=== PATIENT | male | born 1980 | race Two or more races ===

== ENCOUNTER 2019-05-25 10:32 | Day surgery (SDC) | payer OTHER ==
[2019-05-25] VITALS (10 sets, daily range): BP systolic 108–145; BP diastolic 56–86
[~2019-05-25] VITALS: Ht 193 cm; Wt 176.9 kg
--- NOTE | 2019-05-25 10:39 | Anethesia Preoperative Eval ---
Anesthesia Pre-op PMH/ROS General Date of Evaluation: May 25, 2019 Anesthesiologist: Vinay ASA Score: ASA 2 Mallampati Score Class I : Soft palate, uvula, fauces, pillars visible Class II: Soft palate, uvula, fauces visible Class III: Soft palate, base of uvula visible Class IV: Only hard plate visible Mallampati Classification: Class III Surgeon: Rufino Diagnosis: Right knee acl tear Surgical Procedure: Right knee arthroscopy with acl repair Anesthesia History: none Family History: no anesthesia problems Allergies: Coded Allergies: No Known Allergies (Unverified , 05/23/19) Medications: see eMAR Patient NPO?: Yes NPO Date: May 25, 2019 NPO Time: 00:00 Past Medical History Cardiovascular: Denies: HTN, CAD, [place], valve dz, arrhythmia, other Pulmonary: Denies: asthma, COPD, JOAN, other Gastrointestinal/Genitourinary: Reports: GERD; Denies: CRI, ESRD, other Neurologic/Psychiatric: Denies: dementia, CVA, depression/anxiety, TIA, other Endocrine: Denies: DM, hypothyroidism, steroids, other HEENT: Denies: cataract (L), cataract (R), glaucoma, VENETIE (L), VENETIE (R), other Hematology/Immune: Denies: anemia, DVT, bleeding disorder, other Musculoskeletal/Integumentary: Denies: OA, RA, DJD, DDD, edema, other Other: obesity - morbid PSxH Narrative: UHR Anesthesia Pre-op Phys. Exam Physician Exam see chart Constitutional: NAD Cardiovascular: RRR Respiratory: CTA Airway Exam Mallampati Score: Class III MO: limited Neck: short, obese ROM: limited Anesthesia Pre-op A/P Labs see chart Studies Pre-op Studies: EKG - sr Risk Assessment & Plan Assessment: ASA II Plan: GA Status Change Before Surgery: No Pre-Antibiotics Drug: Ancef Given Within 1 Hr of Incision: Yes Brandy Akins MD May 25, 2019 10:39
[2019-05-25] MEDS ORDERED: EPINEPHrine 1mg/1ml Amp ONE ×3 (11:32→13:35)
[2019-05-25] MEDS ORDERED: Bacitracin 50000 Units Vial ONE (11:33)
[2019-05-25] MEDS ORDERED: Ropivacaine 5mg/ml Vial 20ml INJ ONE ×2 (11:33→12:08)
[2019-05-25] MEDS ORDERED: Bupivacaine w/Epi 0.5% 30ml Vial INJ ONE (11:33)
[2019-05-25] MEDS ORDERED: NS Irrig 1000ml IRRIG ONE ×3 (11:36→13:11)
[2019-05-25] MEDS ORDERED: NS Irrig 4000ml IRRIG ONE ×3 (11:37→13:11)
[2019-05-25] MEDS ORDERED: Propofol 200mg/20ml IV ONE (12:00)
[2019-05-25] MEDS ORDERED: LR 1000ml ONE (12:00)
[2019-05-25] MEDS ORDERED: Sterile Water Irrig 1000ml IRRIG ONE (12:00)
[2019-05-25] MEDS ORDERED: Rocuronium Bromide 50mg/5ml Inj IV ONE (12:00)
[2019-05-25] MEDS ORDERED: LR 1000ml 1,000 ML IVLG SCH (12:04)
[2019-05-25] MEDS ORDERED: Lidocaine 1% MPF 10mg/ml 5ml ONE ×2 (12:06→12:29)
[2019-05-25] MEDS ORDERED: Dexamethasone 4mg/ml vial ONE ×2 (12:06→12:08)
[2019-05-25] MEDS ORDERED: fentaNYL 100 mcg/2 mL IV PRN (12:15)
[2019-05-25] MEDS ORDERED: Meperidine 25mg/0.5ml Inj (FOR RIGORS ONLY) IV PRN (12:15)
[2019-05-25] MEDS ORDERED: DiphenhydrAMINE 50mg/ml Inj IVP PRN (12:15)
[2019-05-25] MEDS ORDERED: Acetaminophen (Non formulary) 100 ML IV ONE (12:15)
[2019-05-25] MEDS ORDERED: Metoclopramide 10mg/2ml Inj IVP PRN (12:15)
[2019-05-25] MEDS ORDERED: Atropine Sulfate 0.4mg/ml inj IVP PRN (12:15)
[2019-05-25] MEDS ORDERED: Ketorolac 30mg Inj IV PRN ×2 (12:15)
[2019-05-25] MEDS ORDERED: Labetalol 5mg/ml 20ml vial IV PRN (12:15)
[2019-05-25] MEDS ORDERED: HYDROcodone/Acetamin 5/325 tab ORAL PRN ×2 (12:15→12:45)
[2019-05-25] MEDS ORDERED: HYDROcodone/Acetamin 7.5/325 tab ORAL PRN (12:15)
[2019-05-25] MEDS ORDERED: LORazepam Inj 2mg/ml 1ml IV PRN (12:15)
[2019-05-25] MEDS ORDERED: Midazolam 2mg/2ml Inj IVP PRN (12:15)
[2019-05-25] MEDS ORDERED: Hydromorphone 0.5mg/0.5ml inj IVP PRN (12:15)
[2019-05-25] MEDS ORDERED: oxyCODONE HCL/Acetaminophen 5/325mg ORAL PRN (12:15)
--- NOTE | 2019-05-25 12:21 | Anethesia Preoperative Eval ---
Anesthesia Pre-op PMH/ROS General Date of Evaluation: May 25, 2019 Time of Evaluation: 12:19 Anesthesiologist: Russell ASA Score: ASA 3 Mallampati Score Class I : Soft palate, uvula, fauces, pillars visible Class II: Soft palate, uvula, fauces visible Class III: Soft palate, base of uvula visible Class IV: Only hard plate visible Mallampati Classification: Class III Surgeon: Elie Diagnosis: R Knee Pain Surgical Procedure: R Knee ACL Repair Family History: no anesthesia problems Allergies: Coded Allergies: No Known Allergies (Unverified , 05/25/19) Medications: see eMAR Patient NPO?: Yes NPO Date: May 25, 2019 NPO Time: 00:00 Past Medical History Cardiovascular: Reports: HTN Other: obesity - BMI 49 Anesthesia Pre-op Phys. Exam Physician Exam Last Vital Signs Date Time Temp Pulse Resp B/P (MAP) Pulse Ox O2 Delivery O2 Flow Rate FiO2 05/25/19 11:13 Room Air 05/25/19 11:10 97.8 76 20 145/86 97 Constitutional: NAD Neurologic: CN 2-12 intact Cardiovascular: RRR Respiratory: CTA Gastrointestinal: S/NT/ND Airway Exam Mallampati Score: Class III MO: limited ROM: limited Teeth: missing, intact Anesthesia Pre-op A/P Risk Assessment & Plan Assessment: ASA 3 Plan: GA, SED Status Change Before Surgery: No Pre-Antibiotics Dru Grams Ancef IV Given Within 1 Hr of Incision: Yes Time Given: 12:41 Ravin Wells MD May 25, 2019 12:21
--- NOTE | 2019-05-25 12:41 | Pre-Procedure Note/Attestation ---
Pre-Procedure Note/Attestation Complete Prior to Procedure Planned Procedure: right Procedure Narrative: right kne acl reconstruction Indications for Procedure Pre-Operative Diagnosis: right knee acl tear Attestation I attest that I discussed the nature of the procedure; its benefits; risks and complications; and alternatives (and the risks and benefits of such alternatives ), prior to the procedure, with the patient (or the patient's legal nutrition representative). I attest that, if there was a reasonable possibility of needing a blood transfusion, the patient (or the patient's legal nutrition representative) was given the [facility] standardized written summary, pursuant to the [place] Blood Safety Act ([place] Health and Safety Code # 1645, as amended). I attest that I re-evaluated the patient just prior to the surgery and that there has been no change in the patient's H&P, except as documented below: Navid Joy MD May 25, 2019 12:41
--- NOTE | 2019-05-25 12:42 | Brief Operative Note ---
Immediate Post Operative Note Operative Note Pre-op Diagnosis: right knee acl tear Procedure: right knee acl Post-op Diagnosis: righ tknee acl tear ,, tear oa Post-op Diagnosis: same as pre-op Findings: consistent w/pre-op dx studies Surgeon: donell Anesthesia: general Specimen: none Complications: none Condition: stable Fluids: y Estimated Blood Loss: minimal Implant(s) used?: Yes Navid Joy MD May 25, 2019 12:42
[2019-05-25] MEDS ORDERED: Tylenol #3 tab (300mg/30mg) ORAL PRN (12:45)
[2019-05-25] MEDS ORDERED: D5 1/2NS 1,000 ML IV SCH (12:45)
[2019-05-25] MEDS ORDERED: HYDROmorphone 1mg/ml Carpuject SUBQ PRN (12:45)
--- NOTE | 2019-05-25 13:21 | Immediate Post-Op Evaluation ---
Immediate Post-Op Evalulation Immediate Post-Op Evalulation Procedure: R Knee ACL Repair Date of Evaluation: May 25, 2019 Blood Products: 0 Pain Score (1-10): 2 Nausea: No Vomiting: No Complications 0 Patient Status: awake, reacts, patent, extubated, none Hydration Status: adequate Dru Grams Ancef IV Given Within 1 Hr of Incision: Yes Time Given: 12:41 Ravin Wells MD May 25, 2019 13:21
--- NOTE | 2019-05-25 13:22 | 48 Hour Post Anesthesia Eval ---
Post Anesthesia Evaluation Procedure: R Knee ACL Repair Date of Evaluation: May 25, 2019 Time of Evaluation: 17:12 Blood Pressure Systolic: 121 0: 62 Pulse Rate: 71 Respiratory Rate: 18 Temperature (Fahrenheit): 98 O2 Sat by Pulse Oximetry: 99 Airway: patent Nausea: No Vomiting: No Pain Intensity: 2 Hydration Status: adequate Cardiopulmonary Status: Stable Mental Status/LOC: patient returned to baseline Follow-up Care/Observations: 0 Post-Anesthesia Complications: 0 Follow-up care needed: ready to discharge Ravin Wells MD May 25, 2019 13:22
[2019-05-25] MEDS ORDERED: Neostigmine 1mg/ml 10ml Inj ONE (14:26)
[2019-05-25] MEDS ORDERED: Glycopyrrolate 0.2mg/ml 1ml Vial ONE (14:26)
--- NOTE | 2019-05-25 14:46 | Immediate Post-Op Evaluation ---
Immediate Post-Op Evalulation Immediate Post-Op Evalulation Procedure: R Knee ACL Repair Date of Evaluation: May 25, 2019 Time of Evaluation: 15:00 IV Fluids: 900 LR Blood Products: 0 Estimated Blood Loss: 50 Urinary Output: 0 Blood Pressure Systolic: 118 Blood Pressure Diastolic: 57 Pulse Rate: 73 Respiratory Rate: 16 O2 Sat by Pulse Oximetry: 100 Temperature (Fahrenheit): 97.5 Pain Score (1-10): 2 Nausea: No Vomiting: No Complications 0 Patient Status: awake, reacts, patent, extubated, none Hydration Status: adequate Dru Grams Ancef IV Given Within 1 Hr of Incision: Yes Time Given: 12:41 Ravin Wells MD May 25, 2019 14:46
--- NOTE | 2019-06-07 10:30 | Operative Note - Dictated ---
DATE OF OPERATION: 05/25/2019 FACILITY: [facility]. PREOPERATIVE DIAGNOSES: 1. Right knee large medial meniscus tear. 2. Right knee full ACL tear. 3. Right knee grade 2 and 3 changes medial femoral condyle, medial tibial plateau secondary to accident. 4. Right knee tricompartmental synovitis. 5. Right knee posterior horn and lateral meniscus tear. POSTOPERATIVE DIAGNOSES: 1. Right knee large medial meniscus tear. 2. Right knee full ACL tear. 3. Right knee grade 2 and 3 changes medial femoral condyle, medial tibial plateau secondary to accident. 4. Right knee tricompartmental synovitis. 5. Right knee posterior horn and lateral meniscus tear. PROCEDURES: 1. Right knee arthroscopic ACL reconstruction with Achilles tendon autograft. 2. Modifier 22 secondary to difficulty due to weight. 3. Right knee medial and lateral meniscectomy. 4. Right knee injection of amniotic derived regenerative cells with PRP. SURGEON: Navid Joy M.D. ANESTHESIOLOGIST: Dr. Wells. PREOP NOTE: This is a pleasant gentleman who is 390 pounds taken to the hospital who has unstable knee post accident. I explained to him the surgery and risks being infection, bleeding, anesthetic risks, neurovascular damage, DVT, PE, failure of the operation. The patient agreed. Consents were obtained. OR NOTE: Under the benefit of endotracheal intubation general anesthetic, the patient's right knee was prepped and draped in appropriate manner. Preoperative exam showed instability of the knee. I then proceeded to give a gram of Ancef. Inferolateral and inferomedial incision was made after insufflating the knee with normal saline. Onto the medial side, there was a large medial meniscus tear, bucket-handle in nature with a 01:39 tear which I did a meniscectomy on using ArthroCare wand take 01:44. Chondroplasty was done for cartilage damage in the medial femoral condyle, medial tibial plateau, which was grade II or III in nature for which a chondroplasty was done. I then proceeded to approach the ACL. ACL was completely torn. I used the shaver 02:00 during notchplasty. After doing such, I went to the lateral joint line. There was a posterior horn lateral meniscus tear. The lateral meniscectomy was done with the ArthroCare wand. I then made an incision proximally on the medial side on the tibial crest and then drilled my ACL in with a 10 mm and used the AML guide for the femur, protecting the back wall and placed within perfectly. I then overdrilled this with a 10 mm 02:47 ACL, Achilles tendon graft, into the bone graft, secured it with an 8 mm bioabsorbable screw. I used the screw in full extension with a posterior drawer of the tibia. We had a nice press fit. I examined the knee as well. It was soft throughout all ranges of motion with no instability. I was very pleased. I irrigated the wound copiously. I injected the knee with amniotic regenerative cells and PRP to expedite healing. The patient did well with no complications. Modifier 22 secondary to size. Bal All Joy DR: TATIANA JOB#: [id number] CC:
== END 2019-05-25 16:25 | disposition home or self-care (01) ==
LOC: SUR 10:32
DX: S83.241A Other tear of medial meniscus, current injury, right knee, initial encounter (principal); S83.511A Sprain of anterior cruciate ligament of right knee, initial encounter; M65.861 Other synovitis and tenosynovitis, right lower leg; S83.281A Other tear of lateral meniscus, current injury, right knee, initial encounter; X58.XXXA Exposure to other specified factors, initial encounter; Y92.9 Unspecified place or not applicable; I10 Essential (primary) hypertension; E66.9 Obesity, unspecified; Z68.42 Body mass index [BMI] 45.0-49.9, adult
CPT/HCPCS: 0232T; 29880; 29888; C1713; J0131; J0171; J0690; J1100; J2250; J2405; J2704; J2710; J2795; J3010; J7120; 94003; 94150